=== PATIENT | female | born 1960 | race Caucasian/White ===

== ENCOUNTER 2018-08-09 08:45 | Outpatient (CLI) | payer BC, SELFPAY ==
[2018-08-09 10:03] LABS: Absolute Basophil Count 0.03 k/cumm (0.0-0.2); Absolute Eosinophil Count 0.34 k/cumm (0.0-0.7); Absolute Lymphocyte Count 2.16 k/cumm (1.2-3.4); Absolute Monocyte Count 0.46 k/cumm (0.11-0.7); Absolute Neutrophil Count 2.43 k/cumm (1.2-6.7); Basophils % 0.6; Eosinophils % 6.3; HCT 42.9 % (36.0-46.0); HGB 14.6 g/dL (12.0-15.5); Lymphocytes % 39.9; Mean Corpuscular Hemoglobin 31.1 pg (27.0-33.0); Mean Corpuscular Volume 91.3 fL (80-95); Mean Platelet Volume 10.2 fL (8.0-11.0); Monocytes % 8.5; Neutrophils % 44.7; Platelet Count 219 x1000/uL (130-400); RBC Distribution Width 12.9 % (11.7-14.6); White Blood Cell Count 5.42 k/cumm (4.4-10.8)
[2018-08-09 11:08] LABS: Anion Gap 7.1 mmol/L (3-11); CO2 28.9 mmol/L (21.0-32.0); Chloride 105 mmol/L (98-107); FREE T4 0.87 ng/dL (0.76-1.46); Potassium 4.2 mmol/L (3.5-5.1); Sodium 141 mmol/L (136-145); TSH 1.57 uIU/mL (0.358-3.74)
[2018-08-10 17:20] LABS: T3,Free 4.4 pg/ml (2.8-5.3)
[2018-08-11 09:12] LABS: Vitamin D 25 Total 98.4 ng/ml (30-100)
== END 2018-08-09 09:05 ==
PROVIDERS: PCP Naturopath; Visit Provider Naturopath
DX: E03.9 Hypothyroidism, unspecified (principal); E55.9 Vitamin D deficiency, unspecified; R42 Dizziness and giddiness
CPT/HCPCS: 36415; 80051; 82306; 84439; 84443; 84481; 85025

== ENCOUNTER 2019-06-29 20:47 | Emergency (ER) | payer BC, SELFPAY ==
[2019-06-29 21:03] VITALS: BP 149/67; PULSE 78; RESP 17; TEMP 35.6; O2SAT 98
--- NOTE | 2019-06-29 21:13 | W.ED.GENAD ---
Discharge Plan Disposition Patient Disposition: HOME Condition: Improving Discharge Details Chief Complaint: Laceration Clinical Impression: Abrasion of knee, right Primary Care Provider: Rocio Argueta ED Provider: Reg Sheets Home Meds and New Rx's Prescriptions: No Action No Known Home Meds RF: 0 Discharge Instructions Instructions: Abrasion (ED) Additional Instructions: Return if you develop fever, redness, discharge from the wound or any other acute concerns. Your tetanus status was updated today. Please keep the immunization card for your medical records. Home to rest. Resume normal routine and activities Medical Decision Making 59-year-old female who presents with right leg abrasion from barbed wire when she was hiking today. States her last tetanus shot is unknown and despite attempting to get records from previous healthcare providers she is unable to relate when she last received tetanus immunization. No indication for repair. Patient will have her tetanus updated. She is stable for discharge to home. HPI General Mode of arrival: ambulatory. Date/Time Provider Initiated Documentation: 06/29/19 20:47. Limitations to Documentation: no limitations. Information obtained by: patient. History of Present Illness 59 year old F presents to the emergency department with the chief complaint of Abrasion right leg, described as mild, and is localized to the right and lower extremity. Patient reports no radiation. Patient started experiencing this hour(s) and it has been constant. No relieving factors improve symptom(s), No exacerbating factors reported . Patient notes no other symptoms.. Patient did receive the following treatments prior to arrival, none Related Data Home Medications Medication Instructions Recorded Confirmed Unknown [No Known Home Meds] 06/29/19 06/29/19 Allergies Allergy/AdvReac Type Severity Reaction Status Date / Time sulfamethoxazole Allergy Mild Skin Rash Unverified 06/29/19 21:09 [From Bactrim] trimethoprim [From Bactrim] Allergy Mild Skin Rash Unverified 06/29/19 21:09 General Stated Complaint: Laceration DANNY: 4 Review of Systems Review of Systems Narrative: 4 systems reviewed and otherwise negative [facility] Social History Smoking/Tobacco Use Status: Never Alcohol Intake: never Drug use: Never Substance use type: does not use Do you feel safe at home: Yes Do you feel safe in your relationship?: Yes Exam Narrative Exam Narrative: GEN: awake, alert, oriented 3. Pleasant, well groomed, interactive. HEAD: Normocephalic, atraumatic ENT: Mucous membranes moist, oropharynx unremarkable, External ear exam unremarkable EYES: PERRL, EOMI NECK: Full ROM, no CITLALI, no menigismus CHEST/RESP: Nontender, clear to auscultation bilateral, no wheeze/rhonchi/rales CARDIOVASCULAR: RRR, no murmur, rub janet. 2+ Rad pulse bilateral EXT: Full ROM, no edema, no rash. Superficial abrasion right medial knee. No other acute findings on examination of the knee or right lower extremity Neuro: Grossly normal neurologic exam, conversant, interactive. Psych: Speech fluent, thoughts congruent, affect normal Course Vital Signs Vital signs: Vital Signs Temperature 35.6 C L 06/29/19 21:03 Pulse 78 06/29/19 21:03 Respiratory Rate 17 06/29/19 21:03 Blood Pressure 149/67 H 06/29/19 21:03 Pulse Oximetry 98 06/29/19 21:03 Temperature 35.6 C L 06/29/19 21:03 Temperature Source Skin 06/29/19 21:03 Pulse 78 06/29/19 21:03 Respiratory Rate 17 06/29/19 21:03 Respiratory Effort 06/29/19 21:10 Blood Pressure 149/67 H 06/29/19 21:03 Blood Pressure Position Sitting 06/29/19 21:03 Pulse Oximetry 98 06/29/19 21:03 Oxygen Delivery Method Room Air 06/29/19 21:03 Oxygen Flow Rate 0 06/29/19 21:03 Pain Level 0 06/29/19 21:11
== END 2019-06-29 21:50 | disposition home or self-care (01) ==
PROVIDERS: Emergency Provider Emergency Medicine; PCP Naturopath
DX: S80.211A Abrasion, right knee, initial encounter (principal); W45.8XXA Other foreign body or object entering through skin, initial encounter
CPT/HCPCS: 90471; 99283

== ENCOUNTER 2022-01-11 12:00 | Outpatient (REF) | payer OTHER, SELFPAY ==
[2022-01-15 16:31] LABS: Helicobacter pylori Ag, Feces Negative (Negative)
== END 2022-01-11 12:01 | disposition home or self-care (01) ==
LOC: LBN 12:00
PROVIDERS: PCP Naturopath; Visit Provider Naturopath
DX: K21.9 Gastro-esophageal reflux disease without esophagitis (principal)
CPT/HCPCS: 87338

== ENCOUNTER 2023-09-03 20:15 | Outpatient (REF) | payer OTHER, SELFPAY ==
[2023-09-03 20:57] LABS: Bilirubin Negative (Negative); Blood Small (Negative); Clarity Sl Cloudy (Clear); Glucose Negative (Negative); Ketones Negative (Negative); Leukocyte Esterase Large (Negative); Nitrite Negative (Negative); Specific Gravity 1.015 (1.005-1.025); Urobilinogen 0.2 mg/dL (Up to 0.2)
[2023-09-03 21:11] LABS: Bacteria Moderate HPF (Negative); C & S Indicated? Yes; Crystals Negative HPF (Negative); Epithelial Cells Rare HPF (Negative); Mucus Negative (Negative); WBC >50 HPF (0-5)
== END 2023-09-03 20:16 | disposition home or self-care (01) ==
LOC: NCHCN 20:15
PROVIDERS: PCP Naturopath; Visit Provider Naturopath
DX: R30.0 Dysuria (principal); R35.0 Frequency of micturition
CPT/HCPCS: 87077; 81003; 81015; 87086; 87186

== ENCOUNTER 2023-09-16 21:47 | Outpatient (REF) | payer OTHER, SELFPAY ==
[2023-09-16 21:47] LABS: Bilirubin Negative (Negative); Blood Trace-intact (Negative); Clarity Clear (Clear); Glucose Negative (Negative); Ketones Negative (Negative); Leukocyte Esterase Negative (Negative); Nitrite Negative (Negative); Specific Gravity 1.015 (1.005-1.025); Urobilinogen 0.2 mg/dL (Up to 0.2)
[2023-09-16 21:56] LABS: Bacteria Few HPF (Negative); C & S Indicated? No; Casts Negative LPF (Negative); Crystals Mod Calcium Oxalate HPF (Negative); Epithelial Cells Rare HPF (Negative); Mucus Negative (Negative); RBC Negative HPF (0-2); WBC 0-2 HPF (0-5)
== END 2023-09-16 21:48 | disposition home or self-care (01) ==
LOC: LBN 21:47
PROVIDERS: PCP Naturopath; Visit Provider Naturopath
DX: R30.0 Dysuria (principal)
CPT/HCPCS: 81003; 81015